=== PATIENT | male | born 1945 | race Caucasian/White ===

== ENCOUNTER → 2016-04-13 | Outpatient (CLI) | payer OTHER ==
[~2016-04-13] MED LIST: ACET-1256 PO; AMB10 PO; ASPI81TA28 PO; BUSP15TA70 PO; CALCTAB5 PO; CHOL100010 PO; LPT/40 PO; LSN20 PO; MELO15TA4 PO; NITR0.4S UT; TERB250T51 PO; VSNOPS OPB
--- NOTE | 2016-04-13 13:02 | DIAGNOSTIC IMAGING REPORT ---
PET/CT CLINICAL HISTORY: Lymphoma. TECHNIQUE: A PET/CT was performed from the skull base through the upper thighs following intravenous injection of 15.09 mCi of F 18 FDG IV. The injection was performed at 9:25 AM on April 13, 2016 and imaging began at 10:30 AM on April 13, 2016. Unenhanced CT was performed for attenuation correction purposes and anatomic localization. COMPARISON STUDY: PET/CT October 07, [address] September 14, 2015. FINDINGS: Head, neck and chest: No enlarged cervical lymph nodes are identified. Mild FDG uptake is noted within the left scalene musculature with an SUV max of 3.5. No corresponding abnormality is not shown on the unenhanced CT. The left superior mediastinal mass shown on exam of October 07, 2015 has markedly decreased in size and nearly completely resolved. There may be a residual 1.4 cm non-FDG avid soft tissue focus shown on image 57. FDG uptake on current exam is just superior to the FDG avid mass shown on prior exam. A 1.4 cm non-FDG avid paraspinal/retroaortic nodule adjacent to the distal descending thoracic aorta is unchanged. This is likely benign. Mild bilateral hilar uptake is unchanged with an SUV max of 2.4. This is likely within normal limits and likely corresponds to nonenlarged lymph nodes. Abdomen and Pelvis: No suspicious FDG uptake is identified within the abdomen or the pelvis. There is no abdominal or pelvic lymphadenopathy. There are brachytherapy seeds within the prostate. Musculoskeletal: No suspicious skeletal uptake is identified. IMPRESSION: Findings consistent with a significant treatment response. Marked interval decrease in size of the FDG avid left superior mediastinum mass since prior exam. Minimal residual non-FDG avid soft tissue. Mild uptake within the adjacent scalene musculature is nonspecific and can be assessed on subsequent exam. Electronically signed by: Santana Valverde M.D. 04/13/2016 1:00 PM Dictated Date/Time: 04/13/2016 11:17 AM
== END | disposition home or self-care (01) ==
LOC: C.PET 09:15
PROVIDERS: ATTEND Internal Medicine Hematology & Oncology
DX: C85.90 Non-Hodgkin lymphoma, unspecified, unspecified site (principal)

== ENCOUNTER → 2016-07-21 | Outpatient (CLI) | payer OTHER ==
[2016-07-21 12:55] VITALS: BP 157/88; PULSE 84; TEMP 36.8; O2SAT 95
--- NOTE | 2016-07-21 14:44 | Radiation Oncology Follow-Up ---
Radiation Oncology Follow-Up Date of Visit Jul 21, 2016. (Shanda Jimenez PA-C) Reason For Visit 6 month follow-up (Shanda Jimenez PA-C) Radiation Completion Date To chest on 12/17/15 (Shanda Jimenez PA-C) Diagnosis (1) Prostate cancer Status: Resolved Onset Date: 08/25/2014 Permanent Comment: Rising PSA to 5.65 Status post ultrasound-guided biopsies revealing adenocarcinoma the prostate Salud 3+4 1 of 19 cores positive Prostate volume 52.4 Prostate density 0.107 Lupron 45 mg IM 11/14/2014 Status post prostate seed implant as monotherapy 11/25/2014 received 11,500 cGy 78 seeds were placed Urinary retention post seed implant Last Edited By: Shanda Jimenez on Feb 16:36 (2) Marginal zone B-cell lymphoma Status: Resolved Onset Date: 10/20/2015 Permanent Comment: DIAGNOSIS: Non-hodgkins lymphoma, low grade, B-cell marginal zone lymphoma, potentially extranodal, stage IA Status post completion of radiation therapy 12/17/2015 received 3600 cGy Last Edited By: Shanda Jimenez on Dec 28, 2015 14:52 (Shanda Jimenez PA-C) History of Present Illness Mr. Nix is a 70-year-old gentleman previously treated for intermediate risk prostate cancer with prostate seed implantation and short course androgen deprivation therapy. He received 115 Gy with a cesium-131 implant which was completed on 11/25/2014. His most recent PSA in April 2015 was undetectable. He has had a good long-term recovery and doing well overall. More recently, he did have several episodes of shortness of breath and did have a CT PE protocol completed on 09/14/2015 which did reveal an abnormal apical soft tissue density with encasement of the left subclavian artery. He was seen by Dr. Li who did have his case discussed at the multidisciplinary tumor board and the recommendation was to obtain a PET CT scan and MRI of the chest. The patient had the PET/CT scan on 10/07/2015 which revealed: "1. 3.9 x 3.7 cm FDG avid superior left mediastinal mass. This is suggestive of a neoplastic process such as lymphoma. Metastatic disease could appear similar. 2. No additional sites of FDG avid disease. Specifically, the 1.4 cm paraspinal/ retroaortic hypodense nodule is not FDG avid and is probably benign." He subsequently had a MRI of the chest on 10/09/2015 which revealed: "IMPRESSION: 5 x 4.2 x 3.5 cm enhancing superior left mediastinal mass which encases the proximal left vertebral and subclavian arteries. Suspected minimal extension into the lower neck. This is suggestive of a neoplasm such as lymphoma or metastatic disease." He was then taken to the operating room on 10/20/2015 for a left thoracoscopy and drainage of his left pleural effusion. Official pathology has not been dictated however both Dr. Li, Dr. Jenkins and myself have spoken with Dr. Galdamez from pathology who has confirmed that this is a low-grade marginal zone B-cell lymphoma. Final genetic testing has not been completed on the specimen and is still currently in process. The patient was seen by Dr. Jenkins from medical oncology who has discussed treatment options. We are now seeing the patient in consultation discuss the role of radiation therapy. He completed radiation therapy to the chest 12/17/2015. He received 3600 cGy. (Shanda Jimenez PA-C) Interim History His been doing well over the past 6 months. He denies any difficulty with swallowing. He has good appetite. He has had no problems with weight loss. He denies night sweats. There is been no discomfort of the chest. He continues his regular follow-up with Dr. Jenkins. He did have a PET scan . This showed findings consistent with a significant treatment response. Marked interval decrease in size of the FDG avid left superior mediastinal mass since prior exam. Minimal residual non-FDG avid soft tissue. Mild uptake within the adjacent's scalene musculature is nonspecific and can be assessed on subsequent exams. He continues to follow-up with Dr. Byrd. He saw him approximately 2 weeks ago. He denies difficulty with urination. He denies frequency. He has no problems with nocturia. He does not have any urinary urgency. There is no problems with emptying the bladder. His last PSA was 01/27/2016 and was 0.237. He had a PSA prior on 11/13/2015 and this was 0.258. (Shanda Jimenez PA-C) Allergies Coded Allergies: No Known Allergies (Unverified , 10/20/15) Home Medications Scheduled Acetaminophen (Tylenol), 500 MG PO prn Aspirin (Aspirin Ec), 81 MG PO QAM Atorvastatin (Lipitor), 40 MG PO HS Buspirone Hcl (Buspar), 15 MG PO BID Calcium (Caltrate), 600 MG PO QAM Cholecalciferol (Vitamin D), 1,000 INTER.UNIT PO QAM Lisinopril (Lisinopril), 20 MG PO QAM Nitroglycerin (Nitrostat), 0.4 MG UT PRN Terbinafine Hcl (Lamisil), 1 TAB PO QAM Tetrahydrozoline Hcl (Ophth) (Visine), 2 DROPS OPB QAM Scheduled PRN Zolpidem Tartrate (Zolpidem Tartrate), 10 MG PO HS PRN for PRN Review of Systems Gastrointestinal: Symptoms: WNL GI Comments: No fiber supplements Oral: Symptoms: No Problems Respiratory: Symptoms: WNL Urinary: Symptoms: WNL Skin: Symptoms: No Problems (Shanda Jimenez PA-C) Physical Exam Vital Signs Date Time Temp Pulse Resp B/P Pulse Ox O2 Delivery O2 Flow Rate FiO2 07/21/16 12:55 36.8 84 16 157/88 95 Fatigue: None General Appearance: no apparent distress Eyes: normal inspection, EOMI ENT: normal ENT inspection, hearing grossly normal Neck: no adenopathy, thyroid normal Respiratory/Chest: lungs clear, no respiratory distress, no accessory muscle use, + pertinent finding (there is deformity of the left clavicle from prior fracture) Cardiovascular: regular rate, rhythm, no gallop, no murmur Abdomen: non tender, soft Anal / Rectum: Deferred performed by Dr. Byrd two weeks ago. Extremities: no pedal edema Neurologic/Psychiatric: no motor/sensory deficits, alert Skin: warm/dry (Shanda Jimenez PA-C) Laboratory Studies Test 07/21/16 13:13 (Shanda Jimenez PA-C) Additional Studies PSAs reviewed above. PET/CT reviewed above. (Shanda Jimenez PA-C) Assessment & Plan Plan: Continue regular follow-up with his primary care provider as well as Dr. Ryanne Chacko. He is following him every 3-6 months. We asked him to return to our office in 1 year. He'll be seeing Dr. Byrd in 6 months. PSA was drawn today prior to examination. He'll be notified as to the results. (Shanda Jimenez PA-C) I agree with note created by Shanda Jimenez PA-C. I reviewed the patient's chart and information with her. I have examined and evaluated the patient. I reviewed relevant clinical information and answered the patient's and/or family' s questions. (Veeral. Martinez MD) Total Time In Follow-Up I spent 20 minutes speaking to the patient and performing examination. I set 15 minutes reviewing information completing this note. (Shanda Jimenez PA-C) I spent 15 minutes examining and counseling the patient. (Veeral. Martinez MD) Copy To Joao Gould D.O.Int.Med.; Milton Jenkins MD; Hector Byrd MD; Agustin Berkowitz M.D.
== END | disposition home or self-care (01) ==
LOC: C.ONC 12:19
PROVIDERS: ATTEND Physician Assistant Medical
DX: Z08 Encounter for follow-up examination after completed treatment for malignant neoplasm (principal); Z92.3 Personal history of irradiation; Z85.46 Personal history of malignant neoplasm of prostate; Z85.72 Personal history of non-Hodgkin lymphomas

== ENCOUNTER → 2017-03-15 | Outpatient (CLI) | payer OTHER ==
[~2017-03-15] MED LIST changes: -MELO15TA4 PO
[2017-03-15 12:05] LABS: BASO % 0.3 %; BASO ABS # 0.02 K/uL (0-0.2); COMPLETE YES; EOS % 0.5 %; HEMATOCRIT 46.1 % (42-52); IG% 1.3 %; LYMPH % 26.2 %; LYMPH ABS # 1.58 K/uL (1.2-3.4); MEAN CELL VOLUME 95.1 fL (80-100); MEAN CORPUSCULAR HEMOGLOBIN 33.6 pg (25-34); MEAN CORPUSCULAR HGB CONC 35.4 g/dl (32-36); MEAN PLATELET VOLUME 10.5 fL (7.4-10.4); MONO % 9.1 %; NEUT % 62.6 %; PLATELET COUNT 112 K/uL (130-400); RED BLOOD COUNT 4.85 M/uL (4.7-6.1); WHITE BLOOD COUNT 6.02 K/uL (4.8-10.8)
[2017-03-15 12:35] LABS: ALB/GLOB RATIO 1.4 (0.9-2); ALKALINE PHOSPHATASE 85 U/L (45-117); ALT/SGPT 49 U/L (12-78); AST/SGOT 16 U/L (15-37); BLOOD UREA NITROGEN 21 mg/dl (7-18); BUN/CREATININE RATIO 24.6 (10-20); CARBON DIOXIDE 21 mmol/L (21-32); CHLORIDE 106 mmol/L (98-107); CHOLESTEROL 122 mg/dl (0-200); CHOLESTEROL/HDL RATIO 4.1; CREATININE 0.86 mg/dl (0.60-1.40); GLUCOSE 144 mg/dl (70-99); HDL CHOLESTEROL 30 mg/dl; LDL CHOLESTEROL CALCULATED 26 mg/dl; SODIUM 134 mmol/L (136-145); TRIGLYCERIDES 329 mg/dl (0-150); VERY LOW DENSITY LIPOPROT CALC 66 mg/dl
[2017-03-15 12:38] LABS: PROSTATE SPECIFIC ANTIGEN 0.208 ng/ml (0.000-4.000)
[2017-03-16 06:32] LABS: ESTIMATED AVERAGE GLUCOSE 137 mg/dl; HA1C FLAG Normal (Normal)
== END | disposition home or self-care (01) ==
LOC: C.LAB1850 10:12
PROVIDERS: ATTEND Internal Medicine
DX: C61 Malignant neoplasm of prostate (principal); E78.5 Hyperlipidemia, unspecified; F32.9 Major depressive disorder, single episode, unspecified; R26.81 Unsteadiness on feet; R73.9 Hyperglycemia, unspecified

== ENCOUNTER → 2017-05-17 | Outpatient (CLI) | payer OTHER ==
[~2017-05-17] MED LIST changes: +OPTIRAY 320 IV PRN
--- NOTE | 2017-05-17 11:09 | DIAGNOSTIC IMAGING REPORT ---
CT ABD/PELVIS IV AND ORAL CONT CLINICAL HISTORY: NON HODGKINS LYMPHOMA COMPARISON STUDY: PET/CT scan dated 04/13/2016 TECHNIQUE: Following the IV administration of 116 mL of Optiray-320, CT scan of the abdomen and pelvis was performed from the lung bases to the proximal femurs. Images are reviewed in the axial, sagittal, and coronal planes. IV contrast was administered without complication. A dose lowering technique was utilized adhering to the principles of ALARA. CT DOSE: FINDINGS: Lower chest: There are mild basilar atelectatic changes Liver: There is mild hepatic steatosis. No focal masses are visualized. Gallbladder: There is fundal adenomyomatosis. Spleen: The spleen measures 13 cm in length. No focal masses are visualized. Pancreas: Unremarkable. Adrenal glands: Unremarkable. Kidneys: There are tiny renal cortical cysts. There is a stable area of scarring involving the upper pole the left kidney. Bowel: There are no transition zones indicate bowel obstruction. No acute inflammatory changes are visualized. Peritoneum: There is no intraperitoneal free air or abdominal ascites. There is a fat-containing right inguinal hernia Vasculature: Advanced atheromatous changes are present within the aorta and iliac vessels Adenopathy: None. Pelvic viscera: Prostate patient therapy seeds are visualized. Skeletal structures: No destructive osseous lesions are seen. IMPRESSION: 1. No acute intra-abdominal or pelvic findings 2. No evidence of pathologic adenopathy Electronically signed by: Varun Mejia M.D. 05/17/2017 11:07 AM Dictated Date/Time: 05/17/2017 11:01 AM
--- NOTE | 2017-05-17 11:11 | DIAGNOSTIC IMAGING REPORT ---
(CHEST) THORAX WITH CT DOSE: 1174.69 mGy.cm HISTORY: Lymphoma NON HODGKINS LYMPHOMA TECHNIQUE: Multiaxial CT images of the chest were performed following the intravenous administration of contrast. A dose lowering technique was utilized adhering to the principles of ALARA. COMPARISON: 09/22/2015. PET scan of 04/13/2016 FINDINGS: The left apical soft tissue mass produces described is no longer seen. Nodular density posterior to the descending thoracic aorta within the low thoracic region is unaltered. This showed no significant FDG activity of the patient's prior PET scan. The lungs are considered clear. There are no focal infiltrative changes. Findings of a prior median sternotomy again noted. No significant mediastinal or hilar adenopathy. Calcification of the cardiac arterial vasculature is similar. IMPRESSION: 1. Residual left paravertebral nodule lower left chest unchanged from the prior study. This has been described on prior studies previously. 2. The Remainder of the study is negative. 3. Complete resolution of the left apical soft tissue density described previously. The above report was generated using voice recognition software. It may contain grammatical, syntax or spelling errors. Electronically signed by: Yaniv Woo M.D. 05/17/2017 11:10 AM Dictated Date/Time: 05/17/2017 11:02 AM
== END | disposition home or self-care (01) ==
LOC: C.CTS 10:35
PROVIDERS: ATTEND Internal Medicine Hematology & Oncology
DX: C83.82 Other non-follicular lymphoma, intrathoracic lymph nodes (principal)

== ENCOUNTER → 2017-06-23 | Outpatient (CLI) | payer OTHER ==
[~2017-06-23] MED LIST changes: -OPTIRAY 320 IV PRN
== END | disposition home or self-care (01) ==
LOC: C.LAB1850 09:12
PROVIDERS: ATTEND Urology
DX: C61 Malignant neoplasm of prostate (principal)

== ENCOUNTER → 2017-11-13 | Outpatient (CLI) | payer OTHER ==
[~2017-11-13] MED LIST changes: +LISI-726 PO; -LSN20 PO; +TERB250T22 PO; -TERB250T51 PO
--- NOTE | 2017-11-13 10:05 | DIAGNOSTIC IMAGING REPORT ---
MRI LUMBAR SPINE W/O CONTRAST CLINICAL HISTORY: LUMBAR SPINAL STENOSIS/RADICULOPATHY TECHNIQUE: Sagittal and axial T1, T2 and STIR images were obtained. COMPARISON STUDY: Conventional radiographic study dated 09/15/2017 OBSERVATIONS: The vertebral bodies and posterior elements appear intact. There is no abnormal bony signal present to suggest a marrow replacement process. Degenerative endplate signal changes are present most pronounced the L3-4, and L 4-5 levels. L1-2: No disc protrusions or extrusions. No evidence of spinal canal or neural foraminal compromise. L2-3: There is a mild circumferential disc bulge. There is minor spinal canal narrowing. There is no significant foraminal stenosis L3-4: There is marked disc degeneration. There are no focal herniations. There is no significant spinal stenosis. There is mild left-sided foraminal narrowing L4-5: There is marked disc degeneration. There is minor spinal canal narrowing. There is facet joint arthropathy. There is bilateral foraminal stenosis more severe in the right. L5-S1: There is a circumferential disc bulge. There is no significant spinal stenosis. There is facet joint arthropathy. There is equivocal right L5 laminar fracture. There is no associated edema and this may be old. The conus medullaris and cauda equina appear normal. IMPRESSION: 1. Moderate multilevel degenerative change 2. Minor spinal canal narrowing at the L2-3, and L4-5 levels. 3. Left-sided foraminal narrowing at the L3-4 level, and bilateral foraminal narrowing at the L4-5 level. 4. Equivocal age-indeterminate right L5 laminar fracture Electronically signed by: Varun Mejia M.D. 11/13/2017 10:04 AM Dictated Date/Time: 11/13/2017 9:56 AM
== END | disposition home or self-care (01) ==
LOC: C.MRI 09:01
PROVIDERS: ATTEND Physical Medicine & Rehabilitation
DX: M54.15 Radiculopathy, thoracolumbar region (principal); M48.05 Spinal stenosis, thoracolumbar region